=== PATIENT | female | born 1960 | race African-American/Black ===

== ENCOUNTER 2021-04-08 10:19 | Observation (INO) | payer MEDICAID ==
[~2021-04-08] VITALS: Ht 154.9 cm; Wt 57.9 kg
--- NOTE | 2021-04-08 10:52 | NUR ---
development executive: Pt ambulatory to room from lobby at this time.
[2021-04-08] MEDS ORDERED: ASPIRIN 81 MG TABLET CHEW PO ONE (11:00)
[2021-04-08] MEDS ORDERED: ASPIRIN 81 MG TABLET CHEW ONE (11:11)
[2021-04-08 11:20] LABS: BASOPHILS % (AUTO) 1 % (0-1); EOSINOPHILS % (AUTO) 1 % (1-7); LYMPHOCYTES % (AUTO) 25 % (22-44); MEAN CORPUSCULAR HEMOGLOBIN 34.5 pg (27.0-34.8); MEAN CORPUSCULAR HGB CONC 33.6 g/dL (32.4-35.8); MEAN PLATELET VOLUME 9.6 fL (7.4-10.4); MONOCYTES % (AUTO) 6 % (2-9); NEUTROPHILS % (AUTO) 68 % (42-75); PLATELET COUNT 217 x10^3/uL (130-400); RED BLOOD COUNT 3.84 x10^6/uL (3.82-5.3); RED CELL DISTRIBUTION WIDTH 15.8 % (9.6-15.2)
[2021-04-08 11:27] LABS: ALANINE AMINOTRANSFERASE 28 U/L (12-78); ANION GAP 12 mmol/L (5-15); CALCIUM 8.7 mg/dL (8.5-10.1); CHLORIDE 116 mmol/L (98-107); CREATININE 1.67 mg/dL (0.55-1.02)
[2021-04-08 11:31] LABS: ALKALINE PHOSPHATASE 139 U/L (45-117); BILIRUBIN,TOTAL 0.2 mg/dL (0.2-1.0); TOTAL PROTEIN 7.8 g/dL (6.4-8.2); TROPONIN I < 0.015 ng/mL (0.000-0.045)
--- NOTE | 2021-04-08 11:40 | NUR ---
PT RESTING ON KAYCEE BARRIGA/VSS. CALL LIGHT WITHIN REACH
--- NOTE | 2021-04-08 12:48 | NUR ---
PT RESTING ON KAYCEE BARRIGA/VSS. CALL LIGHT WITHIN REACH.
--- NOTE | 2021-04-08 13:05 | NUR ---
BREAK RN: PT LAYING ON GURNEY WITH EYES CLOSED, RESPONDS APPROP TO VERBAL STIMULI, NAD, NO NEEDS AT THIS TIME, CALL LIGHT WITHIN REACH.
--- NOTE | 2021-04-08 13:23 | NUR ---
Pt to be admitted to [facility], room 518. Report called to MYESHA.
[2021-04-08] MEDS ORDERED: LORazepam 1MG TABLET PO PRN ×2 (13:30)
[2021-04-08] MEDS ORDERED: ONDANSETRON 2MG/ML, 2ML IVPush PRN (13:30)
[2021-04-08] MEDS ORDERED: ACETAMINOPHEN 325 MG TABLET PO PRN (13:30)
[2021-04-08] MEDS ORDERED: NITROGLYCERIN 0.4 MG BOTTLE (25 TABS) SL PRN (13:30)
[2021-04-08] MEDS ORDERED: ONDANSETRON ODT 4 MG PO PRN (13:30)
[2021-04-08] MEDS ORDERED: LORazepam 0.5MG TABLET PO PRN (13:30)
[2021-04-08 14:36] LABS: TROPONIN I < 0.015 ng/mL (0.000-0.045)
[2021-04-08] MEDS ORDERED: ALBUTEROL SULFATE 2.5 MG/3 ML NPPB PRN (15:00)
[2021-04-08 15:06] VITALS: BP 170/100
[2021-04-08] MEDS ORDERED: CARVEDILOL 3.125 MG TABLET ONE (15:37)
[2021-04-08] MEDS: CARVEDILOL 3.125 MG TABLET PO SCH ×2 (15:41→17:43)
[2021-04-08] MEDS: NICOTINE 7 MG/24 HR PATCH.TD24 TD SCH (15:42)
[2021-04-08] MEDS: HEPARIN 5,000 UNITS/ML, 1ML SQ SCH (15:42)
[2021-04-08] MEDS: SODIUM CHLORIDE 0.9% 1,000 ML IV SCH (15:53)
[2021-04-08] MEDS ORDERED: CARVEDILOL 3.125 MG TABLET PO SCH (18:00)
[2021-04-08 19:14] VITALS: BP 188/82
[2021-04-08 19:58] LABS: TROPONIN I < 0.015 ng/mL (0.000-0.045)
[2021-04-08] MEDS ORDERED: ATORVASTATIN 40 MG TABLET PO SCH (21:00)
[2021-04-08] MEDS: DIPHENHYDRAMINE 25 MG CAPSULE PO PRN (21:24)
[2021-04-09 01:28] VITALS: BP 166/88
[2021-04-09] MEDS: HEPARIN 5,000 UNITS/ML, 1ML SQ SCH ×2 (01:54→13:30)
[2021-04-09 06:00] LABS: BASOPHILS % (AUTO) 0 % (0-1); EOSINOPHILS % (AUTO) 1 % (1-7); LYMPHOCYTES % (AUTO) 21 % (22-44); MEAN CORPUSCULAR HEMOGLOBIN 34.2 pg (27.0-34.8); MEAN CORPUSCULAR HGB CONC 33.2 g/dL (32.4-35.8); MEAN PLATELET VOLUME 9.7 fL (7.4-10.4); MONOCYTES % (AUTO) 6 % (2-9); NEUTROPHILS % (AUTO) 71 % (42-75); PLATELET COUNT 183 x10^3/uL (130-400); RED BLOOD COUNT 3.99 x10^6/uL (3.82-5.3); RED CELL DISTRIBUTION WIDTH 15.6 % (9.6-15.2)
[2021-04-09] MEDS ORDERED: ASPIRIN 325 MG TABLET PO SCH (06:00)
[2021-04-09] MEDS ORDERED: CARVEDILOL 6.25 MG TABLET PO SCH (06:00)
[2021-04-09 06:07] LABS: ANION GAP 10 mmol/L (5-15); CALCIUM 8.6 mg/dL (8.5-10.1); CHLORIDE 113 mmol/L (98-107)
[2021-04-09] MEDS ORDERED: AMLODIPINE 5 MG TABLET ONE (06:21)
[2021-04-09] MEDS ORDERED: LOSARTAN 25MG TABLET ONE (06:21)
[2021-04-09] MEDS ORDERED: CLON0.1T2 PO ×2 (07:44→10:52)
[2021-04-09] MEDS ORDERED: ATOR-2 PO ×2 (07:44→10:52)
[2021-04-09] MEDS ORDERED: ASPI-963 PO ×2 (07:44→10:52)
[2021-04-09] MEDS ORDERED: LOSA100T14 PO ×2 (07:44→10:52)
[2021-04-09] MEDS ORDERED: METO-95 PO ×2 (07:44→10:52)
[2021-04-09] MEDS ORDERED: ALLO300T PO ×2 (07:44→10:52)
[2021-04-09] MEDS ORDERED: MONT10TA17 PO ×2 (07:44→10:52)
[2021-04-09] MEDS: SODIUM CHLORIDE 0.9% 1,000 ML IV SCH (07:48)
[2021-04-09 07:58] VITALS: BP 192/134
[2021-04-09] MEDS ORDERED: REGADENOSON 0.4 MG/5 ML SYRINGE ONE (08:19)
[2021-04-09] MEDS ORDERED: LOSARTAN 25MG TABLET PO SCH (09:00)
[2021-04-09] MEDS ORDERED: BUDESONIDE 0.5 MG/2 ML INHA INH SCH (09:00)
[2021-04-09] MEDS ORDERED: AMLODIPINE 5 MG TABLET PO SCH (09:00)
[2021-04-09 10:36] VITALS: BP 144/102
[2021-04-09] MEDS ORDERED: NITR0.4T28 SL (10:49)
[2021-04-09] MEDS ORDERED: NICO-485 TD (10:49)
[2021-04-09] MEDS ORDERED: ALBU90AE2 PO (10:52)
[2021-04-09] MEDS: DIPHENHYDRAMINE 25 MG CAPSULE PO PRN (11:00)
[2021-04-09] MEDS ORDERED: LOSARTAN 100 MG TAB PO SCH (11:00)
[2021-04-09] MEDS ORDERED: ALLOPURINOL 100 MG TABLET PO SCH (11:00)
[2021-04-09] MEDS: NICOTINE 7 MG/24 HR PATCH.TD24 TD SCH (13:30)
[2021-04-09] MEDS ORDERED: ACID1TAB3 PO (13:52)
[2021-04-09 14:10] VITALS: BP 133/81
[2021-04-09] MEDS ORDERED: ATORVASTATIN 80 MG TABLET PO SCH (21:00)
[2021-04-09] MEDS ORDERED: MONTELUKAST 10 MG TABLET PO SCH (21:00)
[2021-04-10] MEDS ORDERED: METOPROLOL SUCCINATE 100 MG TAB.ER.24H PO SCH (09:00)
== END 2021-04-09 16:20 | disposition home or self-care (01) ==
LOC: ED 12:29 → EDIP 13:22 → INTOOBSV 13:22 → 5SO 13:49 → DCLOUNGE 04-09 16:12
PROVIDERS: ADMIT Internal Medicine; ATTEND Internal Medicine
DX: R07.89 Other chest pain (principal); N17.9 Acute kidney failure, unspecified; I13.0 Hypertensive heart and chronic kidney disease with heart failure and stage 1 through stage 4 chronic kidney disease, or unspecified chronic kidney disease; I50.9 Heart failure, unspecified; N18.9 Chronic kidney disease, unspecified; G47.30 Sleep apnea, unspecified; I25.10 Atherosclerotic heart disease of native coronary artery without angina pectoris; I25.2 Old myocardial infarction; J44.9 Chronic obstructive pulmonary disease, unspecified; F10.10 Alcohol abuse, uncomplicated; F17.210 Nicotine dependence, cigarettes, uncomplicated; Z88.0 Allergy status to penicillin; Z95.5 Presence of coronary angioplasty implant and graft; Z79.899 Other long term (current) drug therapy
CPT/HCPCS: 36415; 71046; 78452; 80048; 80053; 83880; 84484; 85025; 93005; 93017; 94640; 96360; 96361; 96372; 99285; A9502; G0378; J1644; J2785; J7030; J7626; Q0163